=== PATIENT | female | born 1930 | race Caucasian/White ===

== ENCOUNTER 2016-08-08 08:13 | Emergency (ER) | payer OTHER ==
[~2016-08-08] VITALS: Ht 152.4 cm; Wt 70.4 kg
[~2016-08-08 08:13] MED LIST: ALEVE220 M2; NAPROSYN500 MG PO; ZOFRAN4 MG PO
[2016-08-08 10:09] LABS: EOSINOPHIL (%) 0 % (0-5); HEMATOCRIT 40.4 % (36.0-46.0); IMMATURE GRANULOCYTE (%) 0.2 % (0.0-0.7); INSTRUMENT ABS NEUTROPHIL CT 3.7 K/uL; LYMPHOCYTE COUNT 0.3 K/uL (1.0-2.8); MCH 30.7 PG (29.0-34.0); MCHC 32.9 G/DL (30.0-36.0); MCV 93.3 FL (83-99); MEAN PLAT.VOLUME 11.2 uM^3 (9.5-12.4); MONOCYTE (%) 7.2 % (3-12); MONOCYTE COUNT 0.3 K/uL (0-0.8); NEUTROPHIL (%) 84.2 % (45-76); NEUTROPHIL COUNT 3.7 K/uL (1.8-6.4); PLATELET COUNT 129 K/uL (156-360); RBC DIS.WIDTH-CV 13.1 % (11.8-14.6); RBC DIS.WIDTH-SD 45.1 % (39-53); RED BLOOD COUNT 4.33 M/uL (3.80-5.20); WHITE BLOOD COUNT 4.3 K/uL (4.1-10.2)
[2016-08-08 10:18] LABS: CHLORIDE 103 mEq/L (99-109); SODIUM 135 mEq/L (136-147)
[2016-08-08 10:20] LABS: GLUCOSE 106 mg/dL (70-99)
[2016-08-08 10:21] LABS: ANION GAP 9 MEQ/L (2-14)
[2016-08-08 10:22] LABS: TOTAL BILIRUBIN 0.8 mg/dL (0.0-1.0)
[2016-08-08 10:23] LABS: ALKALINE PHOSPHATASE 72 IU/L (3-129)
[2016-08-08 10:24] LABS: GFR ESTIMATE (CALCULATED) 50 mL/min/
[2016-08-08 10:25] LABS: UREA NITROGEN (BUN) 19 mg/dL (9-23)
[2016-08-08 10:38] LABS: ADD MIUA? YES; BILIRUBIN NEGATIVE; BLOOD SMALL; COLOR YELLOW ((YELLOW)); GLUCOSE (STRIP) NEGATIVE; KETONES NEGATIVE; LEUKOCYTES LARGE; NITRITE NEGATIVE; PROTEIN (STRIP) NEGATIVE; SPECIFIC GRAVITY 1.012 (1.000-1.030); UROBILINOGEN 0.2 MG/DL (0.2-1.0)
[2016-08-08 10:49] LABS: BACTERIA RARE /HPF; EPITHELIAL CELLS 1+ /HPF; MUCUS TRACE /LPF; UCUL ADDED? NO; WHITE BLOOD CELLS 20-30 /HPF (0-5)
[2016-08-08] MEDS ORDERED: LEVAQUIN750 MG PO (13:28)
[2016-08-08 13:50] VITALS: BP 107/63
== END 2016-08-08 14:02 | disposition home or self-care (01) ==
LOC: EME 08:13
PROVIDERS: Emergency Medicine
DX: J18.9 Pneumonia, unspecified organism (principal); N39.0 Urinary tract infection, site not specified; E78.5 Hyperlipidemia, unspecified; I10 Essential (primary) hypertension; E55.9 Vitamin D deficiency, unspecified; Z96.652 Presence of left artificial knee joint; R53.1 Weakness; S09.90XA Unspecified injury of head, initial encounter; W19.XXXA Unspecified fall, initial encounter
CPT/HCPCS: 70450; 71010; 80053; 81003; 83605; 85025; 87040; 93005; 99281; 99285; J1956